=== PATIENT | female | born 1955 | race Caucasian/White ===

== ENCOUNTER 2017-10-31 21:14 | Emergency (ER) | payer MEDICAID ==
[2017-10-31 23:27] VITALS: BP 116/71
== END 2017-10-31 23:27 | disposition home or self-care (01) ==
LOC: ED 21:14
DX: R07.89 Other chest pain (principal); I10 Essential (primary) hypertension; V43.62XA Car passenger injured in collision with other type car in traffic accident, initial encounter; Y93.I9 Activity, other involving external motion; Y92.89 Other specified places as the place of occurrence of the external cause; Y99.8 Other external cause status
CPT/HCPCS: J1885

== ENCOUNTER 2018-04-16 09:20 | Emergency (ER) | payer SELFPAY ==
[~2018-04-16] VITALS: Ht 160 cm; Wt 78.9 kg
[2018-04-16 09:27] VITALS: Ht 160 cm; Wt 78.9 kg
[2018-04-16 11:28] VITALS: BP 112/64
== END 2018-04-16 11:28 | disposition home or self-care (01) ==
LOC: ED 09:20
DX: S20.212A Contusion of left front wall of thorax, initial encounter (principal); E78.00 Pure hypercholesterolemia, unspecified; I10 Essential (primary) hypertension; W22.8XXA Striking against or struck by other objects, initial encounter; Y93.89 Activity, other specified; Y92.89 Other specified places as the place of occurrence of the external cause; Y99.8 Other external cause status

== ENCOUNTER 2018-05-25 21:44 | Emergency (ER) | payer OTHER ==
[~2018-05-25] VITALS: Ht 162.6 cm; Wt 79.5 kg
[2018-05-25 22:01] VITALS: Ht 162.6 cm; Wt 79.5 kg
[2018-05-25 22:51] LABS: BASOPHIL % 0.6 % (0-2); PLATELET COUNT 324 x10^3mcL (130-400)
[2018-05-25 23:09] LABS: CALCIUM 9.4 mg/dL (8.5-10.1); CARBON DIOXIDE 23.1 mmol/L (21-32); CHLORIDE SERUM 102 mmol/L (98-107); CREATININE SERUM 0.6 mg/dL (0.6-1.0); GFR1 > 60 mL/min; GLUCOSE SERUM 107 mg/dL (74-106); POTASSIUM SERUM 4.1 mmol/L (3.5-5.1); SODIUM SERUM 135 mmol/L (136-145)
[2018-05-25 23:15] LABS: ALBUMIN 3.8 g/dL (3.4-5.0); ALKALINE PHOSPHATASE 93 U/L (46-116); ALT/SGPT 24 U/L (14-59); AST/SGOT 16 U/L (15-37); BILIRUBIN TOTAL 0.2 mg/dL (0.20-1.00); T4(THYROXINE) 11.1 ug/dL (4.7-13.3)
[2018-05-25 23:47] VITALS: BP 134/81
== END 2018-05-25 23:47 | disposition home or self-care (01) ==
LOC: ED 21:44
PROVIDERS: Emergency Medicine
DX: I16.0 Hypertensive urgency (principal); R51 Headache; E78.00 Pure hypercholesterolemia, unspecified
CPT/HCPCS: 36415